=== PATIENT | female | born 1965 | race Caucasian/White ===

== ENCOUNTER 2022-05-13 08:47 | Observation (INO) ==
--- NOTE | 2022-04-05 12:42 | Anesthesiology Consultation ---
Date of Service April 05, 2022 Assessment & Plan (1) Encounter for pre-operative examination: Chart Review Chart Review: Pending: Refer to Additional Notes / Consult section (pending further work up or follow up regarding abnormal preop EKG and preop Covid testing results ) and Patient NOT seen in Pre Admission Testing - [facility] PCP aware of abnormal EKG (setting patient up for stress test). Did inform surgeon's office- that either negative stress test and/or cardiac clearance needed prior to surgery (PCP still has no date for stress test; surgeon's office trying to get patient into see cardio prior to surgery. Per nursing assessment 04/05/2022, patient denies any recent travel. No known COVID infection in the past 90 days. Patient is fully vaccinated for COVID. No known Covid positive exposures or Covid related symptoms. Preop Covid testing scheduled 04/13/22= will await results History Surgery Operation Date: 04/15/22 07:15 Proposed Procedures p Laparoscopic Incisional Hernia Repair with Mesh, Possible Open - Raghavendra Resendiz MD Height/Weight Height: 5 ft 7 in Weight: 115.666 kg Allergies Allergy/AdvReac Type Severity Reaction Status Date / Time No Known Drug Allergies Allergy Verified 04/05/22 11:44 Medications Home Medications Medication Instructions Recorded Confirmed Last Taken fluoxetine 20 mg tablet 20 mg PO QAM 04/05/22 04/05/22 Unknown multivitamin 2 tab PO QAM 04/05/22 04/05/22 Unknown naproxen sodium 220 mg capsule 220 mg PO QAM 04/05/22 04/05/22 Unknown Past Medical History Medical History Anxiety Depression Incisional hernia Past Surgical History Surgical History Hx of section x2 Hx of hysterectomy Hx of knee surgery Rt. Social History Smoking Status: Never smoker Do You Dip or Chew Tobacco: No Hx Alcohol Use: Yes Alcohol type: beer alcohol intake frequency: holidays/special occasions only Hx Substance Use: No substance use type: does not use Testing Laboratory Results 03/21/22= WBC: 4.85 H/H: 15.1/44.2 PLATELETS: 197 SODIUM: 141 POTASSIUM: 4.6 CHLORIDE: 107 CO2: 25 BUN: 16 CREATININE: 0.9 GLUCOSE: 88 AST: 75 ALT: 125 ALK PHOS: 71 Electrocardiogram Date: 03/21/22 Findings: + NSR @ (86bpm ) ST and T wave abnormality, consider anterior ischemia When compared to EKG from December 28, 2018- T wave inversion now evident in anterior leads, QT has lengthened.
--- NOTE | 2022-04-11 16:13 | Anesthesiology Consultation ---
Date of Service April 11, 2022 History Surgery Operation Date: 04/15/22 08:35 Proposed Procedures p Laparoscopic Incisional Hernia Repair with Mesh, Possible Open - Raghavendra Resendiz MD Height/Weight Height: 5 ft 7 in Weight: 115.666 kg Allergies Allergy/AdvReac Type Severity Reaction Status Date / Time No Known Drug Allergies Allergy Verified 04/05/22 11:44 Medications Home Medications Medication Instructions Recorded Confirmed Last Taken fluoxetine 20 mg tablet 20 mg PO QAM 04/05/22 04/05/22 Unknown multivitamin 2 tab PO QAM 04/05/22 04/05/22 Unknown naproxen sodium 220 mg capsule 220 mg PO QAM 04/05/22 04/05/22 Unknown Past Medical History Medical History Anxiety Depression Incisional hernia Past Surgical History Surgical History Hx of section x2 Hx of hysterectomy Hx of knee surgery Rt. Social History Smoking Status: Never smoker Do You Dip or Chew Tobacco: No Hx Alcohol Use: Yes Alcohol type: beer alcohol intake frequency: holidays/special occasions only Hx Substance Use: No substance use type: does not use
[~2022-05-13 08:47] MED LIST: LACTATED RINGER'S 1,000 ML IV SCH
[2022-05-13] MEDS ORDERED: MIDAZOLAM HCL 1 MG/ML 2ML VIAL ONE (09:11)
[2022-05-13] MEDS ORDERED: fentaNYL citrate 100 MCG/2 ML VIAL ONE (09:11)
--- NOTE | 2022-05-13 09:30 | History & Physical Bridge Note ---
Date of Service May 13, 2022 History & Physical Bridge Note I have examined the patient, reviewed the History & Physical and in the interval since the performance of the History & Physical I have noted the following changes of clinical significance: no changes noted
--- NOTE | 2022-05-13 09:33 | History & Physical Report ---
Date of Service May 13, 2022 Assessment & Plan (1) Incisional hernia: Plan 56-year-old woman with midline incisional hernia. I discussed the risks and benefits of laparoscopic incisional hernia repair possible open with her. All questions were answered, she is agreeable to proceed. We will schedule this the earliest convenience. History of Present Illness Primary Care Provider: NO PCP 56-year-old woman with prior C-sections and hysterectomy presents with lower midline incisional hernia. She denies obstructive symptoms. Allergies Allergy/AdvReac Type Severity Reaction Status Date / Time No Known Drug Allergies Allergy Verified 05/13/22 09:07 Home Medications Medication Instructions Recorded Confirmed Type multivitamin 2 tab PO QAM 04/05/22 05/13/22 History naproxen sodium 220 mg capsule 220 mg PO QAM 04/05/22 05/13/22 History Past Med/Surg History Medical History (Updated 05/13/22 @ 09:33 by Raghavendra Resendiz MD) Anxiety Depression Incisional hernia LBBB (left bundle branch block) Noted on exercise stress ECHO 04/10/22- had negative nuclear stress test 04/29/22 Surgical History Hx of section x2 Hx of hysterectomy Hx of knee surgery Rt. Social History Smoking Status: Never smoker Second Hand Exposure: No; Do You Dip or Chew Tobacco: No; Tobacco Cessation Education Requested by Patient: No Hx Alcohol Use: Yes Alcohol type: beer Hx Substance Use: No Preferred Language: Kiswahili Communication Ability: Effective Professional Shopper Required: No Beliefs That Will Affect Care: None Current Living Situation: Alone Other Information That Helps Us Care for You: No Feels Safe at Home: Yes Safety Concerns: Feels Safe At This Time Assistive Devices: Contacts Review of Systems Review of Systems: All systems reviewed & are unremarkable except as noted in HPI & below Physical Exam Constitutional: WD/WN, vitals as above Neck: trachea midline, no thyromegaly Respiratory: normal respiratory effort, lungs clear to auscultation Cardiovascular: RRR, no murmur, no edema Gastrointestinal (Abdomen): Inspection/Auscultation: abdomen normal to inspection; abdomen not distended Percussion/Palpation: abdomen soft and + hernia (Lower midline, partially reducible); abdomen nontender Musculoskeletal: no cyanosis or clubbing, extremities motor strength 5/5 Skin: no rashes, warm and dry Psychiatric: A+Ox3, euthymic affect
[2022-05-13] MEDS ORDERED: HYDROmorphone INJ 2 MG/ML SYR/VIAL IV PRN (09:38)
[2022-05-13] MEDS ORDERED: ePHEDrine sulfate 50 MG/ML AMP IV PRN (09:38)
[2022-05-13] MEDS ORDERED: ONDANSETRON INJ 2 MG/ML 2 ML VIAL IV PRN ×2 (09:38→15:16)
[2022-05-13] MEDS ORDERED: ATROPINE SULFATE 0.1 MG/ML 10ML SYR IV PRN (09:38)
[2022-05-13] MEDS ORDERED: BUPIVACAINE/EPINEPHRINE 0.25% 1:200,000 30 ML VIAL ONE (09:53)
[2022-05-13] MEDS ORDERED: KETOROLAC 30 MG/ML VIAL ONE (10:20)
[2022-05-13] MEDS ORDERED: GLYCOPYRROLATE 0.2 MG/ML VIAL ONE (10:23)
[2022-05-13] MEDS ORDERED: ONDANSETRON INJ 2 MG/ML 2 ML VIAL ONE (10:23)
[2022-05-13] MEDS ORDERED: LARYING-O-JET KIT (LTA) ONE (10:23)
[2022-05-13] MEDS ORDERED: LIDOCAINE 2% MPF LOCAL 5 ML VIAL INFIL ONE (10:23)
[2022-05-13] MEDS ORDERED: DEXAMETHASONE SOD INJ 4 MG/ML VIAL ONE (10:23)
[2022-05-13] MEDS ORDERED: NEOSTIGMINE METHYLSULFATE 1 MG/ML 10ML VIAL ONE (10:23)
[2022-05-13] MEDS ORDERED: ROCURONIUM BROMIDE 10 MG/ML 5 ML VIAL IV ONE ×4 (10:23→11:48)
[2022-05-13] MEDS ORDERED: PROPOFOL IV EMULSION 10 MG/ML 20 ML VIAL IV ONE (10:23)
[2022-05-13] MEDS ORDERED: ePHEDrine sulfate 50 MG/ML SYR ONE (10:23)
[2022-05-13] MEDS ORDERED: PHENYLEPHRINE 100MCG/ML 5ML SYR ONE (10:23)
[2022-05-13] MEDS ORDERED: HYDROmorphone INJ 2 MG/ML SYR/VIAL ONE (10:42)
[2022-05-13] MEDS ORDERED: ACETAMINOPHEN 1000 MG/100 ML IV IV ONE (11:56)
--- NOTE | 2022-05-13 12:00 | Post Operative Brief Note ---
Immediate Post Op Note v1 Date of Surgery May 13, 2022 Pre & Post Diagnosis Operation Date: 04/15/22 11:45 <No data on this case meets the specified criteria> Operation Date: 05/13/22 10:15 Pre-Op Diagnosis: Incisional Hernia without Obstruction or Gangrene Post-Op Diagnosis: Incisional Hernia without Obstruction or Gangrene I identified the patient and participated in the time-out.: Yes Procedure Operation Date: 04/15/22 11:45 <No data on this case meets the specified criteria> Operation Date: 05/13/22 10:15 Actual Procedures p Laparoscopic Incisional Hernia Repair converted to open with mesh(Not Applicable) - Raghavendra Resendiz MD Surgeon Raghavendra Resendiz MD Test Developer none Estimated Blood Loss 50 Findings Consistent with Post-Op Diagnosis Drains Parks Catheter and Emmanuel-Palacios Drain (15round)
--- NOTE | 2022-05-13 12:05 | Operative Report ---
Post Operative Report Pre & Post Diagnosis Operation Date: 04/15/22 11:45 <No data on this case meets the specified criteria> Operation Date: 05/13/22 10:15 Pre-Op Diagnosis: Incisional Hernia without Obstruction or Gangrene Post-Op Diagnosis: Incisional Hernia without Obstruction or Gangrene I identified the patient and participated in the time-out.: Yes Procedure Operation Date: 04/15/22 11:45 <No data on this case meets the specified criteria> Operation Date: 05/13/22 10:15 Actual Procedures p Laparoscopic Incisional Hernia Repair converted to open with mesh(Not Applicable) - Raghavendra Resendiz MD Surgeon Raghavendra Resendiz MD Nephrology Nurse none Estimated Blood Loss 50 Findings Consistent with Post-Op Diagnosis Midline defect just below the umbilicus containing entire transverse colon and omentum Specimens Hernia sac Drains 15 Canadian Erick drain in subcutaneous tissue Anesthesia Type General Complications No immediate complications Description of Procedure Patient was taken to the operating room, placed supine on the operating table. A timeout was performed, perioperative antibiotics were administered, SCD boots were placed. After adequate anesthesia and analgesia was obtained, a Parks catheter was placed, and the area was prepped and draped in normal sterile fashion. Incision was made in the left upper quadrant carried to the level of the fascia. The fascia was grasped with a trach hook, and a varies needle was used into the abdominal cavity. The abdomen was insufflated to pressure 15 mmHg, and a 10 mm trocar was placed this location. The abdomen was surveyed with a 10 mm 30 degree laparoscope. 2 5 mm trochars were placed along the left side under direct visualization. There was a hernia defect, moderate sized, in the midline just below the umbilicus, there is a significant amount of omentum and transverse colon tracking up into this defect. I attempted reduction of the hernia using pressure as well as graspers. The harmonic scalpel was used to take down some of the adhesions. The bowel appeared intimately associated with some of the scar tissue on the lateral side of the hernia, the hernia defect was clearly too small to reduce all of the contents of the hernia back into the abdominal cavity. The decision was made to proceed with the open approach. A midline incision was made in the usual fashion carried down to the level of the subcutaneous tissue. The hernia sac was identified and dissected free circumferentially down to the level of the fascia. The hernia sac was entered a nd a significant amount of omentum as well as transverse colon was identified. The hernia sac was dissected back to the fascial edges and was excised. There was a very large hernia sac causing a very large subcutaneous defect. To reduce all of the contents of the hernia sac, I had to open the fascia cephalad and caudad for another 5 cm. We are finally able to reduce everything back into the abdominal cavity. The edges of the fascia were cleared. A 11 x 15 cm mesh was brought onto the field and maneuvered into the underlay position. It was secured to the fascia with interrupted 2-0 Prolene transfacial sutures. The fascia was then closed back overlying the mesh with interrupted 2-0 Prolene sutures. Attention was turned hemostasis, which was attended to and was excellent. The wound was copiously irrigated suctioned free, and hemostasis was again checked and was excellent. Due to the large size of the prior hernia sac and defect, a 15 Canadian round Erick drain was placed through one of the stab incisions and secured into place with a 2-0 nylon suture. The subcutaneous tissue was closed with 3-0 Vicryl. The skin was closed with surgical clips. Dressings were applied. He/she tolerated the procedure without complication, transferred in stable condition to the PACU. All instrument, needle, and sponge counts were correct at the end of the case. I attest to the content of the Intraoperative Record and any orders documented therein. Any exceptions are noted below.
[2022-05-13] MEDS ORDERED: SUGAMMADEX SODIUM 200 MG/2 ML VIAL IV ONE (12:21)
[2022-05-13] MEDS: fentaNYL citrate 100 MCG/2 ML VIAL IV PRN ×3 (12:25→14:30)
--- NOTE | 2022-05-13 13:04 | Anesthesiology Progress Note ---
Date of Service May 13, 2022 Anesthesia Post Procedure Vital Signs Vital Signs: Temp Pulse Pulse Resp BP Pulse Ox O2 Del Method 05/13/22 12:55 110 H 15 147/89 H 93 Nasal Cannula 05/13/22 12:45 111 H 19 130/100 93 Nasal Cannula 05/13/22 12:35 107 H 15 142/106 H 95 Oxymask 05/13/22 12:25 110 H 16 159/115 H 97 Oxymask 05/13/22 12:15 107 H 26 H 127/110 H 98 Oxymask 05/13/22 12:09 37.0 C 108 H 18 168/102 H 99 Oxymask 05/13/22 09:09 36.8 C 103 H 18 154/95 H 18 L Room Air O2 Flow Rate 05/13/22 12:55 2 05/13/22 12:45 2 05/13/22 12:35 5 05/13/22 12:25 8 05/13/22 12:15 8 05/13/22 12:09 8 05/13/22 09:09 Pain Intensity Left Lower Back: Pain Intensity: 8 Abdomen: Pain Intensity: 5 Transfer of Care Handoff Completed per policy Notes Mental Status: alert / awake / arousable and participated in evaluation Patient Amnestic to Procedure: Yes Nausea / Vomiting: adequately controlled Pain: adequately controlled Airway Patency, RR, SpO2: stable & adequate BP & HR: stable & adequate Hydration State: stable & adequate Anesthetic Complications: no major complications apparent and Pt Satisfied with anesthetic care
[2022-05-13] MEDS ORDERED: diphenhydrAMINE Capsule 25 MG CAP PO PRN (15:16)
[2022-05-13] MEDS ORDERED: LACTATED RINGER'S 1,000 ML IV SCH (15:16)
[2022-05-13] MEDS ORDERED: PROMETHAZINE HCL 12.5 MG in SODIUM CHLORIDE 0.9% 50 ML IV PRN (15:16)
[2022-05-13] MEDS: MoRPHine SULFATE 2 MG/ML CARP IV PRN ×2 (16:00→21:10)
[2022-05-14] MEDS: MoRPHine SULFATE 2 MG/ML CARP IV PRN (05:33)
[2022-05-14] MEDS ORDERED: ENOXAPARIN INJ 40 MG/0.4 ML SYR SQ SCH (07:00)
[2022-05-14] MEDS ORDERED: COUGH DROP (SUGAR FREE) LOZ 24 LOZ/1 BOX BUCCAL ONE (07:37)
[2022-05-14] MEDS: oxyCODONE/ACETAMINOPHEN 5mg/325mg TAB PO PRN ×2 (07:52→13:46)
[2022-05-14 11:39] LABS: Creatinine Clr Calc Pharmacy 89.5 ml/min; Est GFR (African American) 81.7 ml/min; Est GFR (Non-African American) 70.5 ml/min
--- NOTE | 2022-05-14 12:02 | Surgery Progress Note ---
Date of Service May 14, 2022 Assessment & Plan (1) Incisional hernia: Plan POD1 doing well advance activity today breakfast/lunch probable d/c to home after lunch Admission and Anticipated Discharge Date Admission Date: May 13, 2022 Subjective POD1 doing well no complaints. no nausea/vomiting. pain controlled with meds. Physical Exam Constitutional: WD/WN, vitals as above Neck: trachea midline, no thyromegaly Gastrointestinal (Abdomen): Inspection/Auscultation: abdomen normal to inspection, + abdominal surgical incision (lamont present; healing well without erythema/discharge) and + abdominal surgical drain present (small serosanguinous drainage); abdomen not distended Percussion/Palpation: + abdomen tender (incisional) and abdomen soft; no guarding and abdomen not rigid Skin: no rashes, warm and dry Psychiatric: A+Ox3, euthymic affect Results & Data ([facility]) Vital Signs (Past 12 Hours) Vital Signs Temp Pulse Resp BP Pulse Ox O2 Del Method 05/14/22 06:09 37.9 C H 112 H 20 141/85 H 91 Room Air 05/14/22 02:45 37.1 C 116 H 20 139/90 92 Room Air
--- NOTE | 2022-05-20 07:29 | Discharge Summary ---
Date of Service May 20, 2022 Admission HPI Per Admitting Provider 56-year-old woman with prior C-sections and hysterectomy presents with lower midline incisional hernia. She denies obstructive symptoms. Principal Diagnosis Incisional hernia Discharge Exam Constitutional WD/WN, vitals as above Neck trachea midline, no thyromegaly Respiratory normal respiratory effort, lungs clear to auscultation Cardiovascular RRR, no murmur, no edema Gastrointestinal (Abdomen) Inspection/Auscultation: abdomen normal to inspection, + abdominal surgical incision (lamont present; healing well without erythema/discharge) and + abdominal surgical drain present (small serosanguinous drainage); abdomen not distended Percussion/Palpation: + abdomen tender (incisional), abdomen soft and + hernia (Lower midline, partially reducible); no guarding and abdomen not rigid Musculoskeletal no cyanosis or clubbing, extremities motor strength 5/5 Skin no rashes, warm and dry Psychiatric A+Ox3, euthymic affect Discharge Data Allergies Allergy/AdvReac Type Severity Reaction Status Date / Time No Known Drug Allergies Allergy Verified 05/13/22 09:07 Procedures Performed Operation Date: 04/15/22 11:45 <No data on this case meets the specified criteria> Operation Date: 05/13/22 10:15 Actual Procedures p Laparoscopic Incisional Hernia Repair converted to open with mesh(Not Appl icable) - Raghavendra Resendiz MD Hospital Course (1) Incisional hernia: Patient was admitted from home and taken to the operating room for a laparos copic converted to open incisional hernia repair, the details of which are dictated in a separate operative note. Postoperatively she was transferred to the PACU and subsequently to the floor. Over the course of her hospital stay, her diet was advanced as tolerated. Her pain was controlled with IV and subsequent p.o. pain medications. DVT prophylaxis was effected with SCD boots and Lovenox subcutaneous. She is encouraged to ambulate in her room and out in the halls. By the date of discharge, she was tolerating regular diet, not requiring any IV pain medications. She was discharged home on postoperative day 1. Total Time Total Time Spent Total Time Spent (In Minutes): 30 Discharge Plan Discharge Items Patient Disposition: Home - Self-Care Reason For Visit: Incisional Hernia without Obstruction or Gangrene Discharge Diagnosis: incisional hernia Activity: Per Instructions section Lifting: No more than 10 pounds Sexual Activity: Wait until after follow-up appointment Exercise/Sports: Wait until after follow-up appointment Non-emergency contact: Surgeon Call non-emergency contact if: you have any medication questions, your symptoms worsen, your pain is not controlled, your pain is worsening, your pain is unusual for you, your pain is concerning for you, your temperature is above 101.5, your wound has increased redness, your wound has increased drainage and your wound pain has increased Follow-up/Referrals: Raghavendra Resendiz MD [Physician] - 05/24/22 10:30 am PCP,TRICIA [Primary Care Provider] - Diet: Regular Addtl Attending Provider Instructions: ACTIVITY RECOMMENDATIONS: * Walk as much as possible. * No heavy lifting (>10 lbs.) for 6 weeks. SPECIAL CARE INSTRUCTIONS: * Ice to hernia repair site on and off until bedtime tonight. * May shower in 24 hours. Let water run over area and pat dry. * Leave lamont in place. * Call the surgeon's office with any questions or concerns - (ex. temperature higher than 101 degrees F, excessive bleeding or pain). MEDICATIONS: Resume previous medications unless instructed otherwise by your surgeon. * Ibuprofen 600 mg every 6 hours with food * Percocet 1 every 4 hours, as needed for pain FOLLOW UP VISIT: If not already scheduled, please call the office to schedule a one week follow- up appointment for drain and staple removal Office number Pending Studies at Discharge: No Stand-Alone Forms: My [facility], Opioid Pain Management, Smoking Cessation Medications and DC Order Prescriptions: New oxycodone-acetaminophen [Percocet] 5-325 mg tablet 1 tab PO Q6H PRN (Reason: pain) Qty: 15 0RF Continued multivitamin Tablet,Chewable 2 tab PO QAM naproxen sodium 220 mg Capsule 220 mg PO QAM Discharge Orders: Discharge Order (Routine); Ordered 05/14/22 Ordered By: Raghavendra Resendiz Admission Data Admit Date/Time: 05/13/22 12:12 Attending Provider: Raghavendra Resendiz Admit Provider: Raghavendra Resendiz Primary Care Provider: PCP,NO Other Interventions: Discharge Summary Assessment (RN) Last Done: 05/14/22 14:19
== END 2022-05-14 15:09 | disposition home or self-care (01) ==
LOC: PACUINP 08:47 → ASU 08:47 → 3N 15:14